=== PATIENT | male | born 1950 ===

== ENCOUNTER 2017-05-08 12:05 | Emergency (ER) | payer SELFPAY ==
--- NOTE | 2017-05-08 12:50 | UC ---
Skin Complaint HPI - HPI Summary HPI Summary: 66 y/o male presents to the urgent care c/o painful red rash with yellowish drainage below the umbilicus, mid abdomen for the past 2-3 days. Pt states the rash has a yellowish drainage. He reports he had a similar rash last year and was Rx antibiotics. Today's rash has been on and off all summer. Today pain is 9 /10 at touch and with bending. Pt denies fever, SOB,chest pain, N/V/D, urinary symptoms. c - History of Current Complaint Chief Complaint: UCSkin Time Seen by Provider: 05/08/17 12:49 Stated Complaint: SKIN ISSUE Hx Obtained From: Patient Onset/Duration: Gradual Onset Skin Exposure Onset/Duration: Days Ago - 2 Timing: Constant Onset Severity: Mild Current Severity: Severe Pain Intensity: 9 Pain Scale Used: 0-10 Numeric Location: Discrete - mid abdomen below umbilicus Character: Swelling, Redness, Raised, Painful Aggravating: Clothing, Wet Conditions, Touch Alleviating: Nothing Associated Signs & Symptoms: Positive: Tenderness. Negative: Nausea, Vomiting, Numbness, Fever, Chills, Abdominal Pain, Lightheadedness, Red Streaks Similar Episode/Dx as: abcess in the left lower leg on 2016 - Allergy/Home Medications Allergies/Adverse Reactions: Allergies Allergy/AdvReac Type Severity Reaction Status Date / Time No Known Allergies Allergy Verified 05/08/17 12:15 Review of Systems Constitutional: Negative Skin: Rash - at mid abdomen Eyes: Negative ENT: Negative Respiratory: Negative Cardiovascular: Negative Gastrointestinal: Negative Genitourinary: Negative Motor: Negative Neurovascular: Negative Musculoskeletal: Negative Neurological: Negative Psychological: Negative Is Patient Immunocompromised?: No All Other Systems Reviewed And Are Negative: Yes PMH/Surg Hx/FS Hx/Imm Hx Previously Healthy: Yes Cardiovascular History: Hypertension - Pt can't recall name of medication - Surgical History Surgical History: None - Family History Known Family History: Positive: Hypertension - Social History Occupation: Employed Full-time Lives: With Family Alcohol Use: Rare Substance Use Type: None Smoking Status (MU): Heavy Every Day Tobacco Smoker Type: Cigarettes Amount Used/How Often: 1 ppd Length of Time of Smoking/Using Tobacco: since age 21 Have You Smoked in the Last Year: Yes Physical Exam Triage Information Reviewed: Yes Appearance: Well-Appearing, No Pain Distress, Well-Nourished Vital Signs: Initial Vital Signs Temp 99.7 F 05/08/17 12:10 Pulse 93 05/08/17 12:10 Resp 16 05/08/17 12:10 BP 157/84 05/08/17 12:10 Pulse Ox 96 05/08/17 12:10 Vital Signs Reviewed: Yes Eye Exam: Normal Eyes: Positive: Conjunctiva Clear - PERRLA, EOMI ENT Exam: Normal ENT: Positive: Normal ENT inspection, Hearing grossly normal, Pharynx normal, TMs normal Neck exam: Normal Neck: Positive: Supple, Nontender, No Lymphadenopathy Respiratory Exam: Normal Respiratory: Positive: Chest non-tender, Lungs clear, Normal breath sounds Cardiovascular Exam: Normal Cardiovascular: Positive: RRR, No Murmur, Pulses Normal, Brisk Capillary Refill Abdominal Exam: Normal Abdomen Description: Positive: Nontender, No Organomegaly, Soft. Negative: CVA Tenderness (R), CVA Tenderness (L) Bowel Sounds: Positive: Present Musculoskeletal Exam: Normal Musculoskeletal: Positive: Strength Intact, ROM Intact, No Edema Psychological Exam: Normal Skin: Positive: significant lesion(s) - Mid abdomen below umbilicus with 2 erythematous painful pustules, one with yellowish drainage, the other bigger in aize 2cm, indurated w/o drainage,warm, raised and tender to palpation. Course/Dx - Course Course Of Treatment: 66 y/o male presents to the urgent care c/o painful red rash with yellowish drainage below the umbilicus, mid abdomen for the past 2-3 days. Pt states the rash has a yellowish drainage. He reports he had a similar rash last year and was Rx antibiotics. Today's rash has been on and off all summer. Today pain is 9/10 at touch and with bending. Pt denies fever, SOB, chest pain, N/V/D, urinary symptoms.HX obtained. Pt with mid abdomen abscess. I &D of abscess procedure:The procedure was explained and consent obtained. [place] protocol preformed. The wound was anesthetized with 4mL of Lido/epi 2 % with good anesthesia. Sterile drape and prep were done. The fluctuant center was incised with #11 blade scalpel. A moderate amount of caseous material was expressed . wound cultures obtained and sent to lab top r/o MRSA. The wound was probed for loculated areas and irrigated with normal saline. The wound was packed loosely with wick or left open. Bacitracin topical ointment applied and wound covered with sterile dressing. The patient tolerated the procedure well. Pt Rx Bactrim PO and ibuprofen PO for pain. Advised to return to the urgent care for wound check up. Pt advised fever develops and pain increse despite ABX to go immediately to the ER for further management. Pt's with uncontrolled HTN, Pt advised to decrease salt in his diet and f/u with PCP for further management. Pt understood and agreed with D/C instructions. Left the clinic ambulating A&OX3. - Differential Diagnoses - Skin Complaint Differential Diagnoses: Abscess, Cellulitis, Contact Dermatitis, Local Allergic Reaction, Lymphadenitis, MRSA, Tick Born Illness - Diagnoses Provider Diagnoses: 1-mid abdomen abscess. 2- Uncontrolled HTN Discharge - Discharge Plan Condition: Stable Disposition: HOME Prescriptions: Acetaminophen TAB* [Tylenol TAB*] 650 mg PO Q4H PRN #30 tab PRN Reason: Pain Bacitracin OINTMENT* 1 applic TOPICAL TID #1 tube Sulfamethox/Trimethoprim DS* [Bactrim DS 800/160 TAB*] 1 tab PO BID #20 tab Patient Education Materials: Abscess (ED), Low Sodium Diet (ED) Referrals: [facility] [place] [facility] [Outside] - 2 Days Non Staff,Doctor [Primary Care Provider] - Additional Instructions: 1-Please take full course of antibiotic to avoid resistance. Keep wound clean and dry with a sterile dressing. Apply bacitracin topical as directed 2- F/u wound check up in 2 days with your PCP or at the urgent care for removal of packing 3-. Take Tylenol PO q4-6hrs prn for pain or swelling. 4-If you develop fever or redness despite antibiotic please go to the ER immediately or return to the Urgent care. 5- Wound culture sent to lab, if any abnormal result you will receive a call from us 6- Your BP today is elevated, please decrease salt in your diet, monitor your BP , if it continues to be elevated please f/y with your PCP for further management.
[2017-05-08] MEDS ORDERED: Lidocaine 2% W/EPI 1:100,000* 20 ML MDV INJ ONE (13:00)
== END 2017-05-08 14:00 | disposition home or self-care (01) ==
LOC: UCEAST 12:05
DX: L02.211 Cutaneous abscess of abdominal wall (principal); I10 Essential (primary) hypertension
CPT/HCPCS: 10060; 87070; 87077; 87186; 87205; 87640; 87641; 99202; G0463

== ENCOUNTER 2017-05-10 12:57 | Emergency (ER) | payer SELFPAY ==
--- NOTE | 2017-05-10 14:00 | UC ---
Skin Complaint HPI - HPI Summary HPI Summary: Patient is in for re-check of abscess that was Incised and drained. He states decreased redness, pain, and drainage. He is taking the antibiotics and states that it is improving. He denies any adverse reactions to the medication. He denies fever, chills, nausea or vomiting. - History of Current Complaint Chief Complaint: UCWounds Time Seen by Provider: 05/10/17 13:40 Stated Complaint: WOUND RECHECK Hx Obtained From: Patient Onset/Duration: Gradual Onset, Lasting Days Skin Exposure Onset/Duration: Days Ago Onset Severity: Moderate Current Severity: Mild Location: Discrete - below the umbilicius. Aggravating: Touch Alleviating: Other - antibiotics. Associated Signs & Symptoms: Positive: Negative - Allergy/Home Medications Allergies/Adverse Reactions: Allergies Allergy/AdvReac Type Severity Reaction Status Date / Time No Known Allergies Allergy Verified 05/08/17 12:15 Home Medications: Home Medications Lisinopril [Zestril 10 MG-] 10 mg PO DAILY 05/10/17 [History Confirmed 05/10/17] Review of Systems Eyes: Other - healing abscess on abdomen All Other Systems Reviewed And Are Negative: Yes PMH/Surg Hx/FS Hx/Imm Hx Previously Healthy: Yes - Surgical History Surgical History: None - Family History Known Family History: Positive: Hypertension - Social History Occupation: Employed Full-time Alcohol Use: Rare Substance Use Type: None Smoking Status (MU): Heavy Every Day Tobacco Smoker Type: Cigarettes Amount Used/How Often: 1 ppd Length of Time of Smoking/Using Tobacco: since age 21 Have You Smoked in the Last Year: Yes Physical Exam Triage Information Reviewed: Yes Appearance: Well-Appearing Vital Signs: Initial Vital Signs Temp 97.7 F 05/10/17 13:01 Pulse 73 05/10/17 13:01 Resp 18 05/10/17 13:01 BP 125/71 05/10/17 13:01 Pulse Ox 99 05/10/17 13:01 Vital Signs Reviewed: Yes Eye Exam: Normal ENT Exam: Normal Neck exam: Normal Respiratory Exam: Normal Cardiovascular Exam: Normal Abdomen Description: Positive: Other: - healing abscess below the umbilicus two small open areas each 1cm in diameter. skin appeared moist, no surrounding erythema, induration or flucuance. Skin: Positive: Other - see above. Course/Dx - Course Course Of Treatment: Patient with healing abscess, tolerating antibiotics, continue current medical plan. Follow up with PCP. - Differential Diagnoses - Skin Complaint Differential Diagnoses: Abscess - wound recheck - Diagnoses Provider Diagnoses: abscess. wound recheck Discharge - Discharge Plan Condition: Stable Disposition: HOME Patient Education Materials: Abscess Follow-up (ED) Referrals: Non Staff,Doctor [Primary Care Provider] - Additional Instructions: continue current medical plan. follow up with pcp within one week.
== END 2017-05-10 14:17 | disposition home or self-care (01) ==
LOC: UCEAST 12:57
DX: Z48.817 Encounter for surgical aftercare following surgery on the skin and subcutaneous tissue (principal)
CPT/HCPCS: 99211; G0463

== ENCOUNTER 2018-05-12 10:03 | Emergency (ER) | payer OTHER ==
[2018-05-12 10:15] VITALS: BP 157/90
--- NOTE | 2018-05-12 10:59 | UC ---
Throat Pain/Nasal Hung HPI - HPI Summary HPI Summary: 67 y/o male presents to the urgent care c/o facial pain, nasal congestion w/ yellowish nasal discharge for the past days. Pt reports +PND w/ dry cough. Pain is 7/10. Pt has not taking anything to alleviate symptoms. Pt denies fever, SOB, chest pain, abdominal pain, N/V/D. - History of Current Complaint Chief Complaint: UCGeneralIllness Stated Complaint: SINUS COMPLAINT Time Seen by Provider: 05/12/18 10:52 Hx Obtained From: Patient Onset/Duration: Gradual Onset, Lasting Days - 5 days, Still Present, Worse Since - today Severity: Moderate Pain Intensity: 7 Pain Scale Used: 0-10 Numeric Cough: Nonproductive - dry Associated Signs & Symptoms: Positive: Sinus Discomfort, Nasal Discharge - Epiglottits Risk Factors Epiglottis Risk Factors: Negative - Allergies/Home Medications Allergies/Adverse Reactions: Allergies Allergy/AdvReac Type Severity Reaction Status Date / Time No Known Allergies Allergy Verified 05/12/18 10:09 PMH/Surg Hx/FS Hx/Imm Hx Previously Healthy: Yes - Pt denies PMHX - Surgical History Surgical History: None - Family History Known Family History: Positive: Hypertension - Social History Occupation: Employed Full-time Lives: With Family Alcohol Use: None Substance Use Type: None Smoking Status (MU): Heavy Every Day Tobacco Smoker Type: Cigarettes Amount Used/How Often: 1 ppd Length of Time of Smoking/Using Tobacco: since age 21 Have You Smoked in the Last Year: Yes Review of Systems Constitutional: Negative Skin: Negative Eyes: Negative ENT: Nasal Discharge, Sinus Congestion, Sinus Pain/Tenderness Respiratory: Cough - dry Cardiovascular: Negative Gastrointestinal: Negative Genitourinary: Negative Motor: Negative Neurovascular: Negative Musculoskeletal: Negative Neurological: Headache Psychological: Negative Is Patient Immunocompromised?: No All Other Systems Reviewed And Are Negative: Yes Physical Exam - Summary Physical Exam Summary: Vitals: reviewed General: Well developed, well-nourished male patient with NAD. Head and face: Normocephalic and atraumatic, Positive tenderness over the frontal and maxillary sinuses.+PND Eyes: PERRLA, EOMI x 2. Normal conjunctiva. No eye discharge. ENT: Ears and TM with normal limits. Nose: edematous and erythematous nasal mucosa with with yellowish discharge and erythematous mucosa. Pharynx with erythema, no exudate. Neck: Supple, no JVD, no carotid bruits and no lymphadenopathy. Lungs: clear, no rales, no rhonchi, no wheezes. CVS: RRR, S1 and S2 present no murmurs or gallops appreciated. Abdomen: soft nontender with positive bowel sounds. Extremities: no edema noted. Neuro: WNL. Skin: warm and dry Triage Information Reviewed: Yes Vital Signs: Initial Vital Signs Temp 99.3 F 05/12/18 10:10 Pulse 92 05/12/18 10:10 Resp 18 05/12/18 10:10 BP 157/90 05/12/18 10:10 Pulse Ox 97 05/12/18 10:10 Throat Pain/Nasal Course/Dx - Course Course Of Treatment: 67 y/o male presents to the urgent care c/o facial pain, nasal congestion w/ yellowish nasal discharge for the past days. Pt reports + PND w/ dry cough. Pain is 7/10. Pt has not taking anything to alleviate symptoms. Pt denies fever, SOB, chest pain, abdominal pain, N/V/D. Hx obtained. Pt with bacterial sinusitis on examination. Pt Rx Amoxicillin PO and Flonase Nasal spray and Loratadine to alleviate symptoms. Discharge instructions explained to Pt. Advised to Return to the clinic or PCP if symptoms do not improve. Your BP is elevated today. please decrease salt in your diet, monitor BP and if it continues to be elevated please f/u with your PCP for further management. Pt understood and agreed with plan of care. - Differential Dx/Diagnosis Differential Diagnosis/HQI/PQRI: Laryngitis, Pharyngitis, Sinusitis, URI Provider Diagnoses: 1- Acute bacterial sinusitis. 2-Elevated BP w/o Hx of HTN Discharge - Sign-Out/Discharge Documenting (check all that apply): Patient Departure All imaging exams completed and their final reports reviewed: No Studies - Discharge Plan Condition: Stable Disposition: HOME Prescriptions: Amoxicillin PO (*) [Amoxicillin 400 MG/5 ML SUSP*] 11 ml PO BID #220 ml Fluticasone NASAL SPRAY 50MCG* [Flonase NASAL SPRAY 50MCG*] 2 spray BOTH NARES DAILY #1 btl LoraTADine TAB(NF) [Claritin 10 MG TAB(NF)] 10 mg PO DAILY #30 tab Patient Education Materials: Sinusitis (ED), Low-Sodium Diet (ED) Referrals: [facility] [place] [facility] [Outside] - 3 Days Additional Instructions: 1- Please increase fluid intake and rest. take full course of antibiotic to avoid resistance 2-Use Flonase as directed to help drain fluid. Also buy saline drops to clear sinuses 3-Take Loratadine PO to alleviates sinus congestion 4-Return to the clinic or PCP 3 days if symptoms do not improve for further management and treatment 5-Your BP is elevated today. please decrease salt in your diet, monitor BP and if it continues to be elevated please f/u with your PCP for further management 6- Please f/u w/ your PCP for further treatment on your tongue discoloration. - Billing Disposition and Condition Condition: STABLE Disposition: Home
== END 2018-05-12 11:18 | disposition home or self-care (01) ==
LOC: UCEAST 10:03
DX: J01.90 Acute sinusitis, unspecified (principal); R03.0 Elevated blood-pressure reading, without diagnosis of hypertension; F17.210 Nicotine dependence, cigarettes, uncomplicated
CPT/HCPCS: 99212; G0463

== ENCOUNTER 2018-12-17 11:11 | Emergency (ER) | payer MEDICARE ==
[2018-12-17 12:14] VITALS: BP 137/87
--- NOTE | 2018-12-17 12:19 | UC ---
General HPI - HPI Summary HPI Summary: Kaya 68 yo gentleman c/o approx 1+ week progressive cough, sinus lien. Last couple days "it went into my chest." No fever / chills. No rash. No sob perse (except cough). No GI issues. + tob. no known hx asthma / copd. + ear congestion. Sees PCP in Dr. Mansoor Perales. 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 - History of Current Complaint Chief Complaint: UCRespiratory Stated Complaint: CONGESTED Time Seen by Provider: 12/17/18 12:17 Hx Obtained From: Patient Pain Intensity: 0 - Allergy/Home Medications Allergies/Adverse Reactions: Allergies Allergy/AdvReac Type Severity Reaction Status Date / Time No Known Allergies Allergy Verified 12/17/18 12:14 PMH/Surg Hx/FS Hx/Imm Hx Previously Healthy: Yes - see hpi - Surgical History Surgical History: None - Family History Known Family History: Positive: Hypertension - Social History Alcohol Use: None Substance Use Type: None Smoking Status (MU): Heavy Every Day Tobacco Smoker Type: Cigarettes Amount Used/How Often: 1 ppd Length of Time of Smoking/Using Tobacco: since age 21 Have You Smoked in the Last Year: Yes Review of Systems All Other Systems Reviewed And Are Negative: Yes Constitutional: Positive: Negative Skin: Positive: Negative Eyes: Positive: Negative ENT: Positive: Other - see hpi Respiratory: Positive: Other - see hpi Cardiovascular: Positive: Negative Gastrointestinal: Positive: Negative Genitourinary: Positive: Negative Motor: Positive: Negative Neurovascular: Positive: Negative Musculoskeletal: Positive: Negative Neurological: Positive: Negative Psychological: Positive: Negative Is Patient Immunocompromised?: No Physical Exam Triage Information Reviewed: Yes Appearance: Well-Nourished Vital Signs: Initial Vital Signs Temp 99 F 12/17/18 12:12 Pulse 89 12/17/18 12:12 Resp 17 12/17/18 12:12 BP 137/87 12/17/18 12:12 Pulse Ox 98 12/17/18 12:12 Vital Signs Reviewed: Yes Eye Exam: Normal ENT: Positive: Pharynx normal - mild redness c/w cough, no swelling., Nasal congestion, TM dull, Other - R eac + impaction Neck exam: Normal Neck: Positive: Supple Respiratory Exam: Other - + rhonchorus cough, ivette ant and upper chest Respiratory: Positive: No respiratory distress, No accessory muscle use Cardiovascular Exam: Normal Cardiovascular: Positive: RRR, Brisk Capillary Refill Abdominal Exam: Normal Abdomen Description: Positive: Nontender Musculoskeletal Exam: Normal Neurological Exam: Normal - grossly nonfocal Psychological Exam: Normal - conversing easily and appropriately Skin Exam: Normal - no visible or reported rash Course/Dx - Course Course Of Treatment: Has never used an inhaler. Is interested in inhaler. Requests liquid prescription. Questions as posed answered to the best of my ability. - Diagnoses Provider Diagnosis: Bronchitis, Excessive cerumen in right ear canal Discharge - Sign-Out/Discharge Documenting (check all that apply): Patient Departure All imaging exams completed and their final reports reviewed: No Studies - Discharge Plan Condition: Stable Disposition: HOME Prescriptions: Albuterol HFA INHALER* [Ventolin HFA Inhaler*] 1 - 2 puff INH Q4H PRN #1 mdi PRN Reason: Wheezing Amoxicillin/Clavulanate SUSP* [Augmentin SUSP*] 800 mg PO BID 10 Days #2 btl Patient Education Materials: How to Stop Smoking (ED), Acute Bronchitis (ED), Bronchospasm (ED) Referrals: No Primary Care Phys,NOPCP [Primary Care Provider] - Additional Instructions: Follow up with your primary care physician, Dr. Max, per routine. If possible, recommend respiratory recheck in 2 weeks. Blood pressure 137/87 - this will need to be rechecked by your primary care physician as well. Please seek medical attention for worse or new problems in the meantime. - Billing Disposition and Condition Condition: STABLE Disposition: Home
[2018-12-17] MEDS ORDERED: Albuterol HFA INHALER* 8 gm MDI INH ONE (12:47)
== END 2018-12-17 13:25 | disposition home or self-care (01) ==
LOC: UCEAST 11:11
DX: J40 Bronchitis, not specified as acute or chronic (principal); H61.21 Impacted cerumen, right ear; F17.210 Nicotine dependence, cigarettes, uncomplicated
CPT/HCPCS: 99212; A9270-GY; G0463

== ENCOUNTER 2019-08-04 10:51 | Emergency (ER) | payer MEDICARE ==
[2019-08-04 11:01] VITALS: BP 150/93
--- NOTE | 2019-08-04 11:04 | UC ---
Throat Pain/Nasal Hung HPI - HPI Summary HPI Summary: 69 yo male presents with sinus symptoms. He tells me that over the last 7-8 days he has had sinus pain/pressure/congestion with yellow/green nasal discharge and post nasal drip. He has not been taking anything OTC for his symptoms. Denies fever, chills, sore throat, cough. - History of Current Complaint Chief Complaint: UCRespiratory Stated Complaint: SINUS PAIN Time Seen by Provider: 08/04/19 11:04 Hx Obtained From: Patient Onset/Duration: Gradual Onset Severity: Moderate Pain Intensity: 7 Pain Scale Used: 0-10 Numeric - Allergies/Home Medications Allergies/Adverse Reactions: Allergies Allergy/AdvReac Type Severity Reaction Status Date / Time No Known Allergies Allergy Verified 08/04/19 11:01 PMH/Surg Hx/FS Hx/Imm Hx Respiratory History: COPD - Surgical History Surgical History: None - Family History Known Family History: Positive: Hypertension - Social History Occupation: Employed Full-time Lives: With Family Alcohol Use: None Substance Use Type: None Smoking Status (MU): Heavy Every Day Tobacco Smoker Type: Cigarettes Amount Used/How Often: 1 ppd Length of Time of Smoking/Using Tobacco: since age 21 Have You Smoked in the Last Year: Yes Review of Systems All Other Systems Reviewed And Are Negative: No Constitutional: Positive: Negative Skin: Positive: Negative Eyes: Positive: Negative ENT: Positive: Nasal Discharge, Sinus Congestion, Sinus Pain/Tenderness Respiratory: Positive: Negative Cardiovascular: Positive: Negative Gastrointestinal: Positive: Negative Neurological: Positive: Negative Psychological: Positive: Negative Physical Exam - Summary Physical Exam Summary: GENERAL: NAD. WDWN. No pain distress. SKIN: No rashes, sores, lesions, or open wounds. HEENT: Head: AT/NC Eyes: EOM intact. Conjunctiva clear without inflammation or discharge. Ears: Hearing grossly normal. TMs intact, no bulging, erythema, or edema. Nose: Nasal mucosa mildly swollen and erythematous with yellow/ clear discharge. TTP maxillary and frontal sinus. Positive post nasal drip Throat: Posterior oropharynx without exudates, erythema, or tonsillar enlargement. Uvula midline. NECK: Supple. Nontender. No lymphadenopathy. CHEST: CTAB. No r/r/w. No accessory muscle use. Breathing comfortably and in no distress. CV: RRR. Pulses intact. NEURO: Alert. PSYCH: Age appropriate behavior. Triage Information Reviewed: Yes Vital Signs: Initial Vital Signs Temp 98.7 F 08/04/19 10:59 Pulse 96 08/04/19 10:59 Resp 16 08/04/19 10:59 BP 150/93 08/04/19 10:59 Pulse Ox 98 08/04/19 10:59 Vital Signs Reviewed: Yes Throat Pain/Nasal Course/Dx - Course Course Of Treatment: Sinusitis - Differential Dx/Diagnosis Provider Diagnosis: Sinusitis Discharge ED - Sign-Out/Discharge Documenting (check all that apply): Patient Departure All imaging exams completed and their final reports reviewed: No Studies - Discharge Plan Condition: Stable Disposition: HOME Prescriptions: Amoxicillin PO (*) [Amoxicillin 400 MG/5 ML SUSP*] 10 ml PO BID #140 ml Patient Education Materials: Sinusitis (ED) Referrals: No Primary Care Phys,NOPCP [Primary Care Provider] - Additional Instructions: If you develop a fever, shortness of breath, chest pain, new or worsening symptoms - please call your PCP or go to the ED immediately. Your blood pressure was high at todays visit. Please see your primary provider within 4 weeks for recheck and re-evaluation. - Billing Disposition and Condition Condition: STABLE Disposition: Home
== END 2019-08-04 11:30 | disposition home or self-care (01) ==
LOC: UCEAST 10:51
DX: J32.9 Chronic sinusitis, unspecified (principal); J44.9 Chronic obstructive pulmonary disease, unspecified; F17.210 Nicotine dependence, cigarettes, uncomplicated
CPT/HCPCS: 99212; G0463

== ENCOUNTER 2019-10-05 09:48 | Emergency (ER) | payer MEDICARE ==
--- OUTSIDE RECORDS SUMMARY | 2019-10-05 09:55 | XMS REPORT | Continuity of Care Document ---
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 Active Problems Provider Date Localized, primary osteoarthritis Britton Genao MD Onset: 10/29/2018 Social History Type Date Description Comments Sex Unknown Tobacco Use Start: Unknown Heavy tobacco smoker (more than 10 cigarettes/day) Smoking Status Reviewed: 09/02/19 Heavy tobacco smoker (more than 10 cigarettes/day) Exercise Type/Frequency Does not exercise Allergies, Adverse Reactions, Alerts Description No Known Drug Allergies Medications Active Medications SIG Qnty Indications Ordering Provider Date Lisinopril 1 by mouth every Unknown 5mg Tablets day Immunizations Description No Information Available Vital Signs Date Vital Result Comment 09/02/2019 12:06pm Height 71 inches 5'11" Weight 174.00 lb Heart Rate 86 /min BP Systolic 140 mmHg BP Diastolic 72 mmHg Respiratory Rate 12 /min Body Temperature 97.8 F Pain Level 8 BMI (Body Mass Index) 24.3 kg/m2 06/29/2019 9:30am Height 72 inches 6'0" Weight 176.00 lb stated Heart Rate 76 /min BP Systolic 142 mmHg BP Diastolic 78 mmHg Respiratory Rate 12 /min Pain Level 8 BMI (Body Mass Index) 23.9 kg/m2 Results Description No Information Available Procedures Description No Information Available Medical Devices Description No Information Available Encounters Type Date Location Provider Dx Diagnosis Office Visit 03/09/2019 [facility] Britton Vázquez M17.0 Bilateral primary 1:30p at [place] Genao MD osteoarthritis of knee S89.91xA Unspecified injury of right lower leg, initial encounter Assessments Date Code Description Provider 09/02/2019 M17.0 Bilateral primary osteoarthritis of knee Britton Genao MD 09/02/2019 M25.561 Pain in right knee Britton Genao MD 06/29/2019 M17.0 Bilateral primary osteoarthritis of knee Britton Genao MD 03/09/2019 M17.0 Bilateral primary osteoarthritis of knee Britton Genao MD 03/09/2019 S89.91xA Unspecified injury of right lower leg, Britton Genao MD initial encounter Plan of Treatment 09/02/2019 - Britton Genao, MDM17.0 Bilateral primary osteoarthritis of kneeNew Xrays:MRI Knee Right W/O, Ordered: 09/02/19Follow up:Follow up: after MRIM25.561 Pain in right knee Functional Status Description No Information Available Mental Status Description No Information Available Referrals Description No Information Available
[2019-10-05 09:57] VITALS: BP 129/66
--- NOTE | 2019-10-05 10:55 | UC ---
General HPI - HPI Summary HPI Summary: 69 yo gentleman c/o 5 days progressive cough, sinus congestion, post nasal drip , runny nose. No fever / chills. No rash. Started using fluticasone at home, too early to tell if helpful. 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 Cough minimally productive, clear. - History of Current Complaint Chief Complaint: UCGeneralIllness Stated Complaint: SINUS ISSUE Time Seen by Provider: 10/05/19 10:53 Hx Obtained From: Patient Pain Intensity: 7 - Allergy/Home Medications Allergies/Adverse Reactions: Allergies Allergy/AdvReac Type Severity Reaction Status Date / Time No Known Allergies Allergy Verified 10/05/19 09:57 Home Medications: Home Medications Lisinopril TAB* [Prinivil TAB 10 MG*] 1 tab PO DAILY 10/05/19 [History Confirmed 10/05/19] PMH/Surg Hx/FS Hx/Imm Hx Previously Healthy: Yes Respiratory History: Other - + tobacco - Surgical History Surgical History: None - Family History Known Family History: Positive: Hypertension - Social History Alcohol Use: None Substance Use Type: None Smoking Status (MU): Heavy Every Day Tobacco Smoker Type: Cigarettes Amount Used/How Often: 1 ppd Length of Time of Smoking/Using Tobacco: since age 21 Have You Smoked in the Last Year: Yes Review of Systems All Other Systems Reviewed And Are Negative: Yes Constitutional: Positive: Negative Skin: Positive: Negative Eyes: Positive: Negative ENT: Positive: Nasal Discharge, Sinus Congestion Respiratory: Positive: Cough. Negative: Shortness Of Breath Cardiovascular: Negative: Chest Pain Gastrointestinal: Positive: Negative Genitourinary: Positive: Negative Motor: Positive: Negative Neurovascular: Positive: Negative Musculoskeletal: Positive: Negative Neurological: Positive: Negative Psychological: Positive: Negative Is Patient Immunocompromised?: No Physical Exam Triage Information Reviewed: Yes Appearance: Well-Nourished - sitting up, looks tired, but nad Vital Signs: Initial Vital Signs Temp 98.8 F 10/05/19 09:54 Pulse 89 10/05/19 09:54 Resp 18 10/05/19 09:54 BP 129/66 10/05/19 09:54 Pulse Ox 98 10/05/19 09:54 Vital Signs Reviewed: Yes Eye Exam: Normal ENT: Positive: Pharyngeal erythema - mild post pharynx redness, no sores / exudates. C/w post nasal drip., Nasal congestion, Nasal drainage - clear, TM dull Neck exam: Normal Neck: Positive: Supple, Nontender, No Lymphadenopathy Respiratory Exam: Other - + rhonchorus cough, occas wheeze Respiratory: Positive: No respiratory distress, No accessory muscle use Cardiovascular Exam: Normal Cardiovascular: Positive: Pulses Normal, Brisk Capillary Refill Abdominal Exam: Normal Abdomen Description: Positive: Nontender Musculoskeletal Exam: Normal Neurological Exam: Normal - grossly nonfocal Psychological Exam: Normal - nad Skin Exam: Normal - nondiaphoretic no visible or reported rash Course/Dx - Course Course Of Treatment: Declines inhaler. Was given a rx last spring, used once. Will continue fluticasone. Reports that augmentin / amoxicillin works for this, but would like liguid, not pills. Questions as posed answered to the best of my ability. - Diagnoses Provider Diagnosis: Sinusitis Discharge ED - Sign-Out/Discharge Documenting (check all that apply): Patient Departure All imaging exams completed and their final reports reviewed: No Studies - Discharge Plan Condition: Stable Disposition: HOME Prescriptions: Amoxicillin/Clavulanate SUSP* [Augmentin SUSP*] 800 mg PO BID 10 Days #2 btl Patient Education Materials: Sinusitis (ED) Referrals: Marylou Max DO [Primary Care Provider] - - Billing Disposition and Condition Condition: STABLE Disposition: Home
== END 2019-10-05 11:43 | disposition home or self-care (01) ==
LOC: UCEAST 09:48
DX: J32.9 Chronic sinusitis, unspecified (principal); J39.2 Other diseases of pharynx; F17.210 Nicotine dependence, cigarettes, uncomplicated
CPT/HCPCS: 99212; G0463